=== PATIENT | female | born 1955 | race Caucasian/White ===

== ENCOUNTER → 2021-02-27 | Day surgery (SDC) | payer MEDICARE ==
[~2021-02-27] VITALS: Ht 162.6 cm; Wt 72.8 kg
[~2021-02-27] MED LIST: ARICEPT 5MG TABL5 MG PO; COREG 3.125M3.125 MG PO; CRESTOR10 MG PO; DAILY VALUE1 EACH PO; LOVAZA1 GM PO; NAMENDA 10MG TA10 MG PO; SINGULAIR10 MG PO; VITAMIN B-1250 MCG PO
[2021-02-27 07:45] LABS: HCT 42.4 % (37.0-47.0); HGB 13.6 g/dl (12.5-16.0); MCH 30.6 pg (25.0-31.0); MCHC 32.1 g/dL (32.0-36.0); MCV 95.5 fL (78.0-100.0); MPV 9.1 fL (6.0-9.5); RBC 4.44 M/uL (4.20-5.40); RDW 13.9 % (11.5-14.0); WBC 5.8 K/uL (4.0-10.5)
[2021-02-27 07:59] LABS: ALBUMIN 3.6 g/dL (3.4-5.0); BILIRUBIN - TOTAL 0.4 mg/dL (0.2-1.0); BUN/CREAT RATIO (CALC) 15.9 RATIO; CREATININE 0.82 mg/dL (0.51-0.95); GLOBULIN (CALCULATION) 3.6 g/dL; POTASSIUM 3.9 mmol/L (3.5-5.1); TOTAL PROTEIN 7.2 g/dL (6.4-8.2)
== END | disposition home or self-care (01) ==
LOC: FAS 07:03
PROVIDERS: Surgery
DX: Z12.11 Encounter for screening for malignant neoplasm of colon (principal); D12.7 Benign neoplasm of rectosigmoid junction; K57.30 Diverticulosis of large intestine without perforation or abscess without bleeding; I10 Essential (primary) hypertension; Z88.6 Allergy status to analgesic agent; Z88.2 Allergy status to sulfonamides; Z88.0 Allergy status to penicillin; M19.09 Primary osteoarthritis, other specified site; Z79.899 Other long term (current) drug therapy
CPT/HCPCS: 36415; 80053; J1610; J2704; J7120